=== PATIENT | female | born 1965 | race Two or more races ===

== ENCOUNTER 2016-09-02 23:02 | Emergency (ER) | payer MEDICAID, OTHER ==
[2016-09-02 23:28] VITALS: BP 118/81; PULSE 83; RESP 18; TEMP 98; O2SAT 99
--- NOTE | 2016-09-02 23:54 | C.PDOC ---
History Of Present Illness I went to see this patient as soon as I had signed out for her, however I could not find her. I was informed by the nurse that the patient had told her that she changed her mind and does not want to see a doctor anymore because her symptoms have resolved. Time Seen by Provider: 09/02/16 23:35 Past Medical History Vital Signs: Last Vital Signs Temp 98.0 F 09/02/16 23:19 Pulse 83 09/02/16 23:19 Resp 18 09/02/16 23:19 BP 118/81 09/02/16 23:19 Pulse Ox 99 09/02/16 23:19 Family History: States: Unknown Family Hx - Social History Hx Tobacco Use: No Hx Alcohol Use: No Hx Substance Use: No - Immunization History Hx Tetanus Toxoid Vaccination: No Hx Influenza Vaccination: No Hx Pneumococcal Vaccination: No ED Course And Treatment O2 Sat by Pulse Oximetry: 99 Disposition - Disposition Disposition: LEFT W/O BEING SEEN - ER ONLY Disposition Time: 23:53 Condition: UNKNOWN - Clinical Impression Clinical Impression: Patient left without being seen
== END 2016-09-02 23:50 | disposition left against medical advice (07) ==
LOC: C.ER 23:02
DX: R10.13 Epigastric pain (principal); Z02.9 Encounter for administrative examinations, unspecified

== ENCOUNTER 2016-10-17 23:35 | Emergency (ER) | payer MEDICAID, OTHER ==
[2016-10-17 23:49] VITALS: TEMP 97.9
[2016-10-18] MEDS ORDERED: Sodium Chloride 0.9% 1,000 ML ONE (00:18)
[2016-10-18] MEDS ORDERED: Sodium Chloride 0.9% 1,000 ML IV ONE (00:51)
--- NOTE | 2016-10-18 00:59 | C.PDOC ---
History Of Present Illness Patient presents to the ER with a complaint of nausea, vomiting and mid epigastric pain after eating [employer] today. Patient has had similar discomfort in the past after eating fatty foods. Denies fever, chills or diarrhea. Time Seen by Provider: 10/18/16 00:19 Chief Complaint (Nursing): Abdominal Pain History Per: Patient History/Exam Limitations: no limitations Onset/Duration Of Symptoms: Hrs Current Symptoms Are (Timing): Still Present Context: Food ([employer]) Severity: Mild Pain Scale Rating Of: 3 Location Of Pain/Discomfort: Epigastric (Mid) Radiation Of Pain To:: None Quality Of Discomfort: Unable To Describe Associated Symptoms: Nausea, Vomiting. denies: Fever, Chills, Diarrhea Exacerbating Factors: None Alleviating Factors: None Recent travel outside of the [place]: No Past Medical History Reviewed: Historical Data, Nursing Documentation, Vital Signs Vital Signs: Last Vital Signs Temp 97.9 F 10/17/16 23:46 Pulse 85 10/18/16 02:40 Resp 18 10/18/16 02:40 BP 136/84 10/18/16 02:40 Pulse Ox 98 10/18/16 02:40 - Medical History PMH: No Chronic Diseases Surgical History: No Surg Hx Family History: States: No Known Family Hx - Social History Hx Tobacco Use: No Hx Alcohol Use: No Hx Substance Use: No - Immunization History Hx Tetanus Toxoid Vaccination: No Hx Influenza Vaccination: No Hx Pneumococcal Vaccination: No Review Of Systems Constitutional: Negative for: Fever, Chills Gastrointestinal: Positive for: Nausea, Vomiting, Abdominal Pain (Mid epigastric ). Negative for: Diarrhea Physical Exam - Physical Exam Appears: Well, Non-toxic Skin: Warm, Dry Oral Mucosa: Moist Chest: Symmetrical, No Tenderness Cardiovascular: Rhythm Regular, No Murmur Respiratory: No Rales, No Rhonchi, No Wheezing Gastrointestinal/Abdominal: Soft, Tenderness (Mid epigastric) Neurological/Psych: Oriented x3 ED Course And Treatment - Laboratory Results Result Diagrams: 10/18/16 01:06 10/18/16 01:06 O2 Sat by Pulse Oximetry: 99 (Room air) Progress Note: Pepcid IVP, toradol IVP, reglan IVP, zofran IVP, and IV fluids administered. Disposition Counseled Patient/Family Regarding: Studies Performed, Diagnosis - Disposition Referrals: Jenn Jaime MD [Staff Provider] - Disposition: HOME/ ROUTINE Disposition Time: 00:59 Condition: FAIR Prescriptions: Nitrofurantoin Macrocrystals [Macrobid] 1 cap PO BID #14 cap Pantoprazole Sodium [Protonix] 20 mg PO DAILY #15 ect Instructions: Gastritis (DC), Urinary Tract Infection in Women (DC) - Clinical Impression Clinical Impression: Gastritis, UTI (urinary tract infection) - Scribe Statement The provider has reviewed the documentation as recorded by the Scribmaribell Harmon All medical record entries made by the Afshinibe were at my direction and personally dictated by me. I have reviewed the chart and agree that the record accurately reflects my personal performance of the history, physical exam, medical decision making, and the department course for this patient. I have also personally directed, reviewed, and agree with the discharge instructions and disposition.
[2016-10-18 01:13] LABS: BASO % 0.8 % (0.0-2.0); EOS # 0.1 K/uL (0.0-0.7); EOS % 1.4 % (0.0-4.0); HEMATOCRIT 35.7 % (34.0-47.0); LYMPH # 1.7 K/uL (1.0-4.3); LYMPH % 28.4 % (20.0-40.0); MEAN CELL VOLUME 81.4 fL (81.0-99.0); MEAN CORPUSCULAR HEMOGLOBIN 27.1 pg (27.0-31.0); MEAN CORPUSCULAR HGB CONC 33.3 g/dL (33.0-37.0); MEAN PLATELET VOLUME 7.5 fL (7.2-11.7); MONO # 0.5 K/uL (0.0-0.8); MONO % 8.2 % (0.0-10.0); NRBC % 0.1 % (0.0-2.0); RED CELL DISTRIBUTION WIDTH 16.1 % (11.5-14.5); WHITE BLOOD COUNT 5.9 K/uL (4.8-10.8)
[2016-10-18 01:17] LABS: RBC URINE 3 /hpf (0-3); URINE BILIRUBIN NEGATIVE (NEGATIVE); URINE BLOOD NEGATIVE (NEGATIVE); URINE COLOR Yellow (YELLOW); URINE GLUCOSE (UA) NORMAL (Normal); URINE KETONE NEGATIVE (NEGATIVE); URINE LEUKOCYTE ESTERASE TRACE Leu/uL (Negative); URINE PROTEIN 1+ mg/dL (NEGATIVE); URINE UROBILINOGEN NORMAL mg/dL (0.2-1.0); WBC CLUMPS MANY /hpf; WBC URINE 14 /hpf (0-5)
[2016-10-18 01:22] LABS: CHLORIDE 98 mmol/L (98-107)
[2016-10-18 01:23] LABS: POTASSIUM 3.5 mmol/L (3.6-5.2); SODIUM 136 mmol/L (132-148)
[2016-10-18 01:25] LABS: ALB/GLOB RATIO 1.2 (1.0-2.1); ALKALINE PHOSPHATASE 56 U/L (38-126); ALT/SGPT 46 U/L (9-52); AST/SGOT 73 U/L (14-36); BILIRUBIN,TOTAL 0.7 mg/dL (0.2-1.3); BLOOD UREA NITROGEN 13 mg/dL (7-17); CALCIUM 9.3 mg/dl (8.6-10.4); CARBON DIOXIDE 27 mmol/L (22-30); GFR AFRICAN-AMERICAN > 60; GLUCOSE,RANDOM 113 mg/dL (65-105); TOTAL PROTEIN 7.9 g/dL (6.3-8.3)
[2016-10-18 02:41] VITALS: BP 136/84; PULSE 85; RESP 18
[2016-10-18 03:03] VITALS: O2SAT 99
== END 2016-10-18 02:41 | disposition home or self-care (01) ==
LOC: C.ER 23:35
DX: K29.70 Gastritis, unspecified, without bleeding (principal); N39.0 Urinary tract infection, site not specified
CPT/HCPCS: 80053; 81001; 83690; 84703; 85025; 96361; 96374; 96375; 99284; J1885; J2405; J2765; J7040